=== PATIENT | male | born 1935 | race Caucasian/White ===

== ENCOUNTER 2019-03-15 21:47 | Observation (INO) ==
[~2019-03-15 21:47] MED LIST: SODIUM CHLORIDE 0.9% 1000ML 1,000 ML IV SCH
[2019-03-15 22:02] LABS: Basophils # (auto) 0.01 K/uL (0-0.2); Basophils % (auto) 0.2 %; Eosinophils # (auto) 0.07 K/uL (0-0.5); Eosinophils % (auto) 1.6 %; Hematocrit (blood only) 38.5 % (42-52); Hemoglobin 12.9 g/dL (14.0-18.0); Immature Granulocytes # (auto) 0.02 K/uL (0.00-0.02); Immature Granulocytes % (auto) 0.5 %; Lymphocytes # (auto) 0.89 K/uL (1.2-3.4); Lymphocytes % (auto) 20.8 %; Mean Corpuscular Hemoglobin 31.2 pg (25-34); Mean Corpuscular Hgb Conc 33.5 g/dL (32-36); Mean Corpuscular Volume 93.2 fL (80-100); Mean Platelet Volume 9.7 fL (7.4-10.4); Monocytes # (auto) 0.36 K/uL (0.11-0.59); Monocytes % (auto) 8.4 %; Neutrophils # (auto) 2.92 K/uL (1.4-6.5); Neutrophils % (auto) 68.5 %; Platelet Count 204 K/uL (130-400); RDW Coefficient of Variation 13.5 % (11.5-14.5); RDW Standard Deviation 45.9 fL (36.4-46.3); Red Blood Count 4.13 M/uL (4.7-6.1); White Blood Count 4.27 K/uL (4.8-10.8)
--- NOTE | 2019-03-15 22:05 | CT Scan Report ---
CT head/brain wo con CLINICAL HISTORY: 83 years-old Male presenting with Stroke evaluation. TECHNIQUE: Multidetector CT imaging of the head was performed without the use of intravenous contrast . IV contrast: None. One or more dose lowering techniques were used consistent with the principles of ALARA (as low as reasonably achievable), including automatic exposure control, mA or kV adjustment t o individual patient size, and/or use of iterative reconstruction. COMPARISON: 02/18/2018. CT DOSE (mGy.cm): The estimated cumulative dose is 1035.39. 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 Proportional ventricular and sulcal prominence, likely age-related parenchymal volume loss. No hemorr caden. Periventricular and subcortical white matter hypoattenuation, nonspecific but likely indicative of chronic small vessel ischemic change. No acute territorial infarct. No mass effect or midline kirsten ft. No extra-axial fluid collection. Paranasal sinuses and mastoid air cells clear. Calvarium intact. IMPRESSION: 1. Chronic small vessel ischemic change. No acute intracranial abnormality. These findings were discussed with nurse Berman by Dr. Tam on 03/15/2019 10:03 PM. Electronically signed by: Pio Tam M.D. 03/15/2019 10:04 PM
--- NOTE | 2019-03-15 22:11 | CT Scan Report ---
CT angio head w con CLINICAL HISTORY: 83 years-old Male presenting with difficulty speaking, cva. TECHNIQUE: Multidetector CT angiography of the head was performed after the administration of intrave nous contrast. 3-D volumetric and/or maximum intensity projection (MIP) images were subsequently tash nstructed for review. IV contrast: 116 mL of Optiray 320. One or more dose lowering techniques were u sed consistent with the principles of ALARA (as low as reasonably achievable), including automatic ex posure control, mA or kV adjustment to individual patient size, and/or use of iterative reconstructio n. COMPARISON: None. CT DOSE (mGy.cm): The estimated cumulative dose is 1035.39. 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 Anterior circulation: Atherosclerosis of the cavernous segments of the internal carotid arteries. Int racranial portions of the internal carotid arteries patent to the level of the termini. Anterior cere bral arteries patent. Middle cerebral arteries patent. Anterior communicating artery patent. Posterior circulation: Codominant vertebral arteries. Intradural portions of the vertebral arteries p atent. Posterior inferior cerebellar arteries patent. Basilar artery patent. Anterior inferior cerebe llar arteries poorly visualized. Superior cerebellar arteries patent. Posterior cerebral arteries pat ent. Posterior communicating arteries patent. Dural venous sinuses: Patent. Other: Allowing for the phase of contrast, brain parenchyma with age-related parenchymal volume loss. Calvarium intact. IMPRESSION: 1. No evidence of aneurysm, focal vessel occlusion, or significant stenosis of the intracranial charlie wesley. Electronically signed by: Pio Tam M.D. 03/15/2019 10:10 PM
--- NOTE | 2019-03-15 22:15 | CT Scan Report ---
CT angio neck with con CLINICAL HISTORY: 83 years-old Male presenting with difficulty speaking, cva. TECHNIQUE: Multidetector CT angiography of the neck was performed after the administration of intrave nous contrast. 3-D volumetric and/or maximum intensity projection (MIP) images were subsequently tash nstructed for review. IV contrast: 116 mL of Optiray 320. One or more dose lowering techniques were u sed consistent with the principles of ALARA (as low as reasonably achievable), including automatic ex posure control, mA or kV adjustment to individual patient size, and/or use of iterative reconstructio n. Stenosis measurements were based on NASCET-like criteria (distal lumen diameter as the denominator for stenosis measurement). COMPARISON: None. CT DOSE (mGy.cm): The estimated cumulative dose is 1035.39 mGy.cm. FINDINGS: Workers Compensation Attorney topogram: Unremarkable. Aortic arch: Origins of the branch vessels are not included within the [id number] apart from the l eft subclavian artery origin. Trace atherosclerosis of the aorta. Innominate artery: Patent. Right subclavian artery: Patent. Right common carotid artery: Patent. Right internal and external carotid arteries: Right carotid bifurcation patent. Right internal and ex ternal carotid arteries widely patent. Left common carotid artery: Patent. Left internal and external carotid arteries: Left carotid bifurcation patent. Left internal and exter nal carotid arteries widely patent. Left subclavian artery: Patent. Vertebral arteries: Left dominant vertebral artery. Origins and courses of the bilateral vertebral ar teries patent. Other: Limited intracranial evaluation within normal limits. Soft tissues of the neck normal allowing for the phase of contrast. Degenerative changes of the cervical spine. Lung apices clear. IMPRESSION: 1. No evidence of dissection, focal vessel occlusion, or significant stenosis of the cervical arteri es. Electronically signed by: Pio Tam M.D. 03/15/2019 10:14 PM
[2019-03-15 22:19] LABS: Alanine Aminotransferase 9 U/L (12-78); Albumin Level 2.9 gm/dl (3.4-5.0); Aspartate Aminotransferase 23 U/L (15-37); BUN Creatinine Ratio 18.1 (10-20); Blood Urea Nitrogen 20 mg/dl (7-18); Calcium 9.1 mg/dl (8.5-10.1); Carbon Dioxide 29 mmol/L (21-32); Chloride 106 mmol/L (98-107); Creatinine Clr Calc Pharmacy 41.9 ml/min; Est GFR (African American) 71.3; Est GFR (Non-African American) 61.5; Glucose 121 mg/dl (70-99); Magnesium 1.9 mg/dl (1.8-2.4); Potassium 3.9 mmol/L (3.5-5.1); Sodium 140 mmol/L (136-145)
[2019-03-15 22:21] LABS: INR 1.2 (0.9-1.1); Partial Thromboplastin Time 27.4 Seconds (21.0-31.0); Prothrombin Time 12.4 Seconds (9.0-12.0)
[2019-03-15 22:24] LABS: Albumin Globulin Ratio 0.7 (0.9-2); Alkaline Phosphatase 201 U/L (45-117); Bilirubin,Total 0.5 mg/dl (0.2-1); Total Protein 6.9 gm/dl (6.4-8.2); Troponin I < 0.015 ng/ml (0-0.045)
[2019-03-15 22:26] LABS: iSTAT Creatinine 1.1 mg/dl (0.6-1.3); iSTAT Hemoglobin 10.5 g/dl (14.0-18.0); iSTAT Ionized Calcium 1.13 mmol/l (1.12-1.32); iSTAT Potassium 4.3 mEq/L (3.3-5.0)
--- NOTE | 2019-03-15 22:37 | XRay Report ---
XR chest 1V portable CLINICAL HISTORY: 83 years-old Male presenting with CVA. TECHNIQUE: Portable upright AP view of the chest was obtained. COMPARISON: 02/18/2018. FINDINGS: Atherosclerosis of the aortic arch. Cardiac silhouette normal in size. Lungs are hyperinflated. No fo heber opacity. No pleural effusion or pneumothorax. Degenerative changes of the thoracic spine. Upper a bdomen normal. IMPRESSION: 1. Findings suggest emphysema. No focal infiltrate to suggest pneumonia. Electronically signed by: Pio Tam M.D. 03/15/2019 10:36 PM
--- NOTE | 2019-03-15 22:50 | Emergency Department Note ---
Entered by Giulia Thurston acting as a scribe for History of Present Illness General Chief complaint: Stroke Alert Stated complaint: AMS Source: patient and family (daughter) History of Present Illness Onset (ago): hour(s) 6 Location: head (stroke like symptoms) Pain Consistency: + constant Relieved By: + none Associated symptoms: + denies other symptoms (numbness and pain), + weakness and + other (trouble speaking, slumping in chair) The patient is a 83 year old M who presents to the Emergency Room with complaints of constant stroke like symptoms that started 6 hours ago. The majority of the HPI was provided by the patients daughter. She states that the patient is currently cared for by personal home care. She notes that she went see the patient today at 3:30pm. She states that when she saw the patient, the patient was weak and was slumping in his chair to the left side. She adds that at that time she attributed the patients symptoms to his history of Parkinsons Disease. She notes that the personal care nurse called EMS after she left because the nurse thought the patient was getting worse. The patient states that he has trouble speaking. The patient denies that he is currently experiencing numbness and pain. The patients family states that the patient has a history of kidney stones. They deny that the patient has a history of diabetes, a prior stroke, heart issues, and smoking. They also deny that the patient is currently on blood thinners. A review of the patients records show that the patient was seen by Dr. Lezama, neurology, on the th of this month due to a significant decline from baseline. Home Medications Home Medications Medication Instructions Recorded Confirmed Type albuterol sulfate [Ventolin HFA] 2 puff INHALATION Q4 PRN 03/15/19 03/15/19 History amantadine HCl 100 mg PO BID 03/15/19 03/15/19 History calcium carbonate-vitamin D3 1 tab PO BID 03/15/19 03/15/19 History [Calcium 500 + D] carbidopa-levodopa 2 tab PO TID 03/15/19 03/15/19 History cholecalciferol (vitamin D3) 2,000 unit PO DAILY 03/15/19 03/15/19 History [Vitamin D3] docusate sodium 100 mg PO BID 03/15/19 03/15/19 History hyoscyamine sulfate 0.125 mg PO Q6 PRN 03/15/19 03/15/19 History memantine [Namenda] 10 mg PO BID 03/15/19 03/15/19 History montelukast [Singulair] 10 mg PO DAILY 03/15/19 03/15/19 History nitrofurantoin monohyd/m-cryst 100 mg PO DAILY 03/15/19 03/15/19 History [Macrobid] phenazopyridine 100 mg PO TID PRN 03/15/19 03/15/19 History polyethylene glycol 3350 17 g PO DAILY 03/15/19 03/15/19 History [Natura-LAX] potassium chloride [K-Tab] 20 meq PO DAILY 03/15/19 03/15/19 History quetiapine [Seroquel] 75 mg PO HS 03/15/19 03/15/19 History ropinirole 0.5 mg PO BID 03/15/19 03/15/19 History senna 17.2 mg PO HS PRN 03/15/19 03/15/19 History sennosides-docusate sodium 2 tab-cap PO DAILY PRN 03/15/19 03/15/19 History [Senna-S] simvastatin [Zocor] 20 mg PO HS 03/15/19 03/15/19 History Allergies Allergy/AdvReac Type Severity Reaction Status Date / Time erythromycin base Allergy Unknown DOESN'T Verified 03/15/19 22:51 REMEMBER WHAT REACTION oxycodone Allergy Unknown TOLERATES Verified 03/15/19 22:51 VICODIN tetracycline Allergy Unknown RASH Verified 03/15/19 22:51 Past Med/Surg History Medical History Allergic rhinitis Constipation Dementia with Lewy bodies Dyslipidemia Essential hypertension History of malignant neoplasm of prostate Parkinsons disease Restless legs syndrome Surgical History Hx of lithotripsy S/P ureteral stent placement Family History Mother Breast cancer Social History Preferred Language: Japanese Communication Ability: Effective Visual Impairment: Limited Hearing Ability: Hard of Hearing Beliefs That Will Affect Care: None marital status: / Current Living Situation: Personal Care Facility Current Living Situation Comment: [facility] Feels Safe at Home: Yes Smoking Status: Never smoker Hx Alcohol Use: No Hx Substance Use: No Childhood Exposure to Second-Hand Smoke: No caffeine: Yes (Coffee one per day. ) during the past year weight has: decreased > 10 lbs Dental Care, Regularly: No Physical Activity Frequency: Does not Exercise Seatbelt Use: always Sunscreen Use: Yes Review of Systems See HPI for pertinent positives & negatives. and A total of 10 systems reviewed and were otherwise negative Physical Exam Vital Signs Vital Signs - 24 hr 03/15/19 22:09 03/15/19 22:15 03/15/19 22:30 Temperature 36.5 C Temperature Source Oral Pulse Rate 70 70 68 Pulse Rate from SpO2 Sensor 70 67 Respiratory Rate 18 20 24 Respiratory Depth Normal Blood Pressure 125/70 125/70 138/76 Blood Pressure Mean 88 75 84 Pulse Oximetry 96 96 99 Oxygen Delivery Method Room Air Room Air Room Air Sepsis Recent Fever Within 48 Hours No Sepsis New/Unexplained Change in Mental Status No Sepsis Action Taken by Nursing No Action Required 03/15/19 22:45 03/15/19 22:51 03/15/19 23:00 Temperature Temperature Source Pulse Rate 66 67 65 Pulse Rate from SpO2 Sensor 66 67 65 Respiratory Rate 22 27 H 18 Respiratory Depth Blood Pressure 138/75 133/74 137/77 Blood Pressure Mean 83 86 82 Pulse Oximetry 99 100 100 Oxygen Delivery Method Room Air Room Air Room Air Sepsis Recent Fever Within 48 Hours Sepsis New/Unexplained Change in Mental Status Sepsis Action Taken by Nursing 03/15/19 23:30 Temperature Temperature Source Pulse Rate 65 Pulse Rate from SpO2 Sensor 65 Respiratory Rate 25 H Respiratory Depth Blood Pressure 140/79 Blood Pressure Mean 88 Pulse Oximetry 100 Oxygen Delivery Method Room Air Sepsis Recent Fever Within 48 Hours Sepsis New/Unexplained Change in Mental Status Sepsis Action Taken by Nursing GENERAL: Patient is awake but listless appearing. He does not appear to be in pain. EYES: The conjunctivae are clear. The pupils are round and reactive. EARS, NOSE, MOUTH AND THROAT: The nose is without any evidence of any deformity. Mucous membranes are moist. NECK: The neck is nontender and supple. RESPIRATORY: Shallow respirations were noted. There is no tachypnea or conversational dyspnea. CARDIOVASCULAR: Regular rate and rhythm noted there no murmurs rubs or gallops normal S1 normal S2 GASTROINTESTINAL: The abdomen is soft. Abdomen is nontender MUSCULOSKELETAL/EXTREMITIES: There is no evidence of gross deformity full range of motion is noted in the hips and shoulders SKIN: There is no obvious evidence of any rash. Pedal edema was noted bilateral ly. NEUROLOGIC: Patient is oriented to person place and situation. He recognizes his daughter. Kennel Keeper strength is diminished in the left hand compared to the right. Patient is able to hold each leg off the bed for greater than 5 seconds. Course Course 2146: The patient was evaluated in room B1. A complete history and physical exam was performed. 2207: I reviewed the patient's case with Juan Robertshey Telestroke. 2257: I reviewed the patient's case with Dr. Denny Solares, [facility] Hospitalist. He will evaluate the patient for further management. Administered Medications Sodium Chloride (Nss 1000ml) 1,000 mls @ 50 mls/hr IV .Q20H ANGY Stop: 04/14/19 21:44 Last Admin: 03/15/19 22:22 Dose: 50 mls/hr Documented by: [id number] Medical Decision Making Differential Diagnosis Differential includes acute coronary syndrome, myocardial infarction, CVA, TIA, anemia, infection, pneumonia, UTI, pyelonephritis, poor nutrition, dehydration, electrolyte disturbance,hypoglycemia. Medical Records Attestation: I reviewed the patient's medical records. Home Medications Current Medication List: was personally reviewed by me Laboratory Data Attestation: I reviewed the patient's lab results. Result diagrams: 03/15/19 21:14 03/15/19 21:14 Lab Results 03/15/19 03/15/19 03/15/19 Range/Units 21:14 21:14 21:14 WBC 4.27 L (4.8-10.8) K/uL RBC 4.13 L (4.7-6.1) M/uL Hgb 12.9 L (14.0-18.0) g/dL POC Hgb (14.0-18.0) g/dl Hct 38.5 L (42-52) % POC Hct (42-52) % MCV 93.2 (80-100) fL MCH 31.2 (25-34) pg MCHC 33.5 (32-36) g/dL RDW Std Deviation 45.9 (36.4-46.3) fL RDW Coeff of Mike 13.5 (11.5-14.5) % Plt Count 204 (130-400) K/uL MPV 9.7 (7.4-10.4) fL Immature Gran % (Auto) 0.5 % Neut % (Auto) 68.5 % Lymph % (Auto) 20.8 % Hart % (Auto) 8.4 % Eos % (Auto) 1.6 % Baso % (Auto) 0.2 % Immature Gran # (Auto) 0.02 (0.00-0.02) K/uL Neut # (Auto) 2.92 (1.4-6.5) K/uL Lymph # (Auto) 0.89 L (1.2-3.4) K/uL Hart # (Auto) 0.36 (0.11-0.59) K/uL Eos # (Auto) 0.07 (0-0.5) K/uL Baso # (Auto) 0.01 (0-0.2) K/uL PT 12.4 H (9.0-12.0) Seconds INR 1.2 H (0.9-1.1) APTT 27.4 (21.0-31.0) Seconds PTT Ratio 1.0 POC Sodium (135-144) mEq/L Sodium 140 (136-145) mmol/L POC Potassium (3.3-5.0) mEq/L Potassium 3.9 (3.5-5.1) mmol/L POC Chloride (101-112) mEq/L Chloride 106 (98-107) mmol/L Carbon Dioxide 29 (21-32) mmol/L POC Total CO2 (24-31) mEq/l Anion Gap 6.0 (3-11) POC Anion Gap (16-25) mmol/L POC BUN (7-18) mg/dl BUN 20 H (7-18) mg/dl Creatinine 1.11 (0.6-1.4) mg/dl POC Creatinine (0.6-1.3) mg/dl Est Cr Clr Drug Dosing 41.9 ml/min Est GFR ( Amer) 71.3 Est GFR (Non-Af Amer) 61.5 BUN/Creatinine Ratio 18.1 (10-20) Glucose 121 H (70-99) mg/dl POC Glucose (70-99) POC Glucose (other) (70-99) mg/dl Calcium 9.1 (8.5-10.1) mg/dl POC Ioniz Calcium Marlon (1.12-1.32) mmol/l Magnesium 1.9 (1.8-2.4) mg/dl Total Bilirubin 0.5 (0.2-1) mg/dl AST 23 (15-37) U/L ALT 9 L (12-78) U/L Alkaline Phosphatase 201 H (45-117) U/L Troponin I < 0.015 (0-0.045) ng/ml Total Protein 6.9 (6.4-8.2) gm/dl Albumin 2.9 L (3.4-5.0) gm/dl Globulin 4.0 (2.5-4.0) gm/dl Albumin/Globulin Ratio 0.7 L (0.9-2) Blood Type Antibody Screen 03/15/19 03/15/19 03/15/19 Range/Units 22:08 22:10 22:10 WBC (4.8-10.8) K/uL RBC (4.7-6.1) M/uL Hgb (14.0-18.0) g/dL POC Hgb 10.5 L (14.0-18.0) g/dl Hct (42-52) % POC Hct 31 L (42-52) % MCV (80-100) fL MCH (25-34) pg MCHC (32-36) g/dL RDW Std Deviation (36.4-46.3) fL RDW Coeff of Mike (11.5-14.5) % Plt Count (130-400) K/uL MPV (7.4-10.4) fL Immature Gran % (Auto) % Neut % (Auto) % Lymph % (Auto) % Hart % (Auto) % Eos % (Auto) % Baso % (Auto) % Immature Gran # (Auto) (0.00-0.02) K/uL Neut # (Auto) (1.4-6.5) K/uL Lymph # (Auto) (1.2-3.4) K/uL Hart # (Auto) (0.11-0.59) K/uL Eos # (Auto) (0-0.5) K/uL Baso # (Auto) (0-0.2) K/uL PT (9.0-12.0) Seconds INR (0.9-1.1) APTT (21.0-31.0) Seconds PTT Ratio POC Sodium 139 (135-144) mEq/L Sodium (136-145) mmol/L POC Potassium 4.3 (3.3-5.0) mEq/L Potassium (3.5-5.1) mmol/L POC Chloride 101 (101-112) mEq/L Chloride (98-107) mmol/L Carbon Dioxide (21-32) mmol/L POC Total CO2 28 (24-31) mEq/l Anion Gap (3-11) POC Anion Gap 14.0 L (16-25) mmol/L POC BUN 19 H (7-18) mg/dl BUN (7-18) mg/dl Creatinine (0.6-1.4) mg/dl POC Creatinine 1.1 (0.6-1.3) mg/dl Est Cr Clr Drug Dosing ml/min Est GFR ( Amer) Est GFR (Non-Af Amer) BUN/Creatinine Ratio (10-20) Glucose (70-99) mg/dl POC Glucose 112 H (70-99) POC Glucose (other) 119 H (70-99) mg/dl Calcium (8.5-10.1) mg/dl POC Ioniz Calcium Marlon 1.13 (1.12-1.32) mmol/l Magnesium (1.8-2.4) mg/dl Total Bilirubin (0.2-1) mg/dl AST (15-37) U/L ALT (12-78) U/L Alkaline Phosphatase (45-117) U/L Troponin I (0-0.045) ng/ml Total Protein (6.4-8.2) gm/dl Albumin (3.4-5.0) gm/dl Globulin (2.5-4.0) gm/dl Albumin/Globulin Ratio (0.9-2) Blood Type A Positive Antibody Screen NEGATIVE Imaging Data Radiologist's Impression: Radiology results as stated below per my review and the radiologist's interpretation: XR chest 1V portable CLINICAL HISTORY: 83 years-old Male presenting with CVA. TECHNIQUE: Portable upright AP view of the chest was obtained. COMPARISON: 02/18/2018. FINDINGS: Atherosclerosis of the aortic arch. Cardiac silhouette normal in size. Lungs are hyperinflated. No focal opacity. No pleural effusion or pneumothorax. Degenerative changes of the thoracic spine. Upper abdomen normal. IMPRESSION: 1. Findings suggest emphysema. No focal infiltrate to suggest pneumonia. Electronically signed by: Pio Tam M.D. 03/15/2019 10:[address] head/brain wo con CLINICAL HISTORY: 83 years-old Male presenting with Stroke evaluation. TECHNIQUE: Multidetector CT imaging of the head was performed without the use of intravenous contrast. IV contrast: None. One or more dose lowering techniques were used consistent with the principles of ALARA (as low as reasonably achievable), including automatic exposure control, mA or kV adjustment to individual patient size, and/or use of iterative reconstruction. COMPARISON: 02/18/2018. CT DOSE (mGy.cm): The estimated cumulative dose is 1035.39. FINDINGS: Storage Garage Attendant topogram: The patient is edentulous. Proportional ventricular and sulcal prominence, likely age-related parenchymal volume loss. No hemorrhage. Periventricular and subcortical white matter hypoattenuation, nonspecific but likely indicative of chronic small vessel ischemic change. No acute territorial infarct. No mass effect or midline shift. No extra-axial fluid collection. Paranasal sinuses and mastoid air cells clear. Calvarium intact. IMPRESSION: 1. Chronic small vessel ischemic change. No acute intracranial abnormality. These findings were discussed with nurse Berman by Dr. Tam on 03/15/2019 10:03 PM. Electronically signed by: Pio Tam M.D. 03/15/2019 10:[address] angio head w con CLINICAL HISTORY: 83 years-old Male presenting with difficulty speaking, cva. TECHNIQUE: Multidetector CT angiography of the head was performed after the administration of intravenous contrast. 3-D volumetric and/or maximum intensity projection (MIP) images were subsequently reconstructed for review. IV contrast: 116 mL of Optiray 320. One or more dose lowering techniques were used consistent with the principles of ALARA (as low as reasonably achievable), incl uding automatic exposure control, mA or kV adjustment to individual patient size, and/or use of iterative reconstruction. COMPARISON: None. CT DOSE (mGy.cm): The estimated cumulative dose is 1035.39. FINDINGS: Storage Garage Attendant topogram: The patient is edentulous. Anterior circulation: Atherosclerosis of the cavernous segments of the internal carotid arteries. Intracranial portions of the internal carotid arteries patent to the level of the termini. Anterior cerebral arteries patent. Middle cerebral arteries patent. Anterior communicating artery patent. Posterior circulation: Codominant vertebral arteries. Intradural portions of the vertebral arteries patent. Posterior inferior cerebellar arteries patent. Basilar artery patent. Anterior inferior cerebellar arteries poorly visualized. Superior cerebellar arteries patent. Posterior cerebral arteries patent. Posterior communicating arteries patent. Dural venous sinuses: Patent. Other: Allowing for the phase of contrast, brain parenchyma with age-related parenchymal volume loss. Calvarium intact. IMPRESSION: 1. No evidence of aneurysm, focal vessel occlusion, or significant stenosis of the intracranial arteries. Electronically signed by: Pio Tam M.D. 03/15/2019 10:[address] angio neck with con CLINICAL HISTORY: 83 years-old Male presenting with difficulty speaking, cva. TECHNIQUE: Multidetector CT angiography of the neck was performed after the administration of intravenous contrast. 3-D volumetric and/or maximum intensity projection (MIP) images were subsequently reconstructed for review. IV contrast: 116 mL of Optiray 320. One or more dose lowering techniques were used co nsistent with the principles of ALARA (as low as reasonably achievable), including automatic exposure control, mA or kV adjustment to individual patient size, and/or use of iterative reconstruction. Stenosis measurements were based on NASCET-like criteria (distal lumen diameter as the denominator for stenosis measurement). COMPARISON: None. CT DOSE (mGy.cm): The estimated cumulative dose is 1035.39 mGy.cm. FINDINGS: Storage Garage Attendant topogram: Unremarkable. Aortic arch: Origins of the branch vessels are not included within the [id number] apart from the left subclavian artery origin. Trace atherosc lerosis of the aorta. Innominate artery: Patent. Right subclavian artery: Patent. Right common carotid artery: Patent. Right internal and external carotid arteries: Right carotid bifurcation patent. Right internal and external carotid arteries widely patent. Left common carotid artery: Patent. Left internal and external carotid arteries: Left carotid bifurcation patent. Left internal and external carotid arteries widely patent. Left subclavian artery: Patent. Vertebral arteries: Left dominant vertebral artery. Origins and courses of the bilateral vertebral arteries patent. Other: Limited intracranial evaluation within normal limits. Soft tissues of the neck normal allowing for the phase of contrast. Degenerative changes of the cervical spine. Lung apices clear. IMPRESSION: 1. No evidence of dissection, focal vessel occlusion, or significant stenosis of the cervical arteries. Electronically signed by: Pio Tam M.D. 03/15/2019 10:14 PM ECG Data Attestation: I personally reviewed and interpreted this ECG as follows: Indication: + weakness Rate (beats per minute): 70 Rhythm: + normal sinus ECG Intervals/blocks: + Left bundle branch block ECG Findings: no PACs and no PVCs Comparison ECG Date: from (02/18/18) Change: no significant change Blood Pressure Blood Pressure Findings: Elevated blood pressure Blood Pressure Disposition: further management by hospitalist JAVIER Villarreal The patient is an 83-year-old male who presented to the emergency department for an evaluation of possible stroke. Further history is obtained from the prehospital personnel as well as the patient's family members. The patient was made a stroke alert prior to arrival because he appeared to have left-sided weakness. I was able to review some of the patient's outpatient neurology notes prior to arrival and it appears the patient has very advanced Parkinson's. The patient was not found to have any acute disease on plain CT. I discussed this case initially with the [facility] stroke neurologist. They did not recommend any TPA at this time given the patient's age and advanced disease but did recommend that I call them back if the condition changed or if the patient's family members gave different history. Upon arrival the patient's family members did admit that the patient has been having symptoms since approximately 1530 this afternoon. I do not feel the patient is a good candidate for TPA and he does not appear to have signs of large vessel occlusion either on physical exam or on radiographic studies. The patient does appear to have significant difficulty swallowing. I discussed the patient's laboratory and radiographic studies with him and his family members. He was treated with a fluid bolus. I also discussed his case with the on-call [facility] hospitalist group. They have agreed to evaluate the patient in the emergency department for further management disposition. Impression & Plan Weakness Discharge Plan Visit Data *Final* Discharge Date/Time: 03/16/19 00:18 Chief Complaint: Stroke Alert Stated Complaint: AMS ED Provider: Tavares Diaz Discharge Problem: Weakness Patient Disposition: Admitted As Inpatient Discharge Instructions Interventions: ED Discharge Assessment Last Done: 03/16/19 00:18 The scribe's documentation has been prepared under my direction and personally reviewed by me in its entirety. I confirm that the note above accurately reflects all work, treatment, procedures, and medical decision making performed by me.
--- NOTE | 2019-03-16 | History & Physical Report ---
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 Concern for stroke versus baseline deconditioning Strokelike symptoms: Leaning more to the left and possible speech changes Vitals within normal limits Normal neurologic exam compared to baseline CT head: Chronic small vessel ischemic change, no acute intracranial abnormality CTA head: No aneurysm focal vessel occlusion or stenosis of intracranial arteries CTA neck: No dissection focal vessel occlusion significant stenosis of cervical artery MRI brain ordered Lipid profile and hemoglobin A1c ordered Echo ordered On stroke protocol, monitor on telemetry Started on aspirin 81 mg daily Continue home simvastatin Neurology consulted Hyperlipidemia Continue home simvastatin Parkinson's disease Continue amantadine, carbidopa levodopa Continue hyoscyamine for excessive salivation Dementia Continue home memantine RLS Continue ropinirole Emphysema Continue home albuterol inhaler, montelukast Chronic constipation Continue home docusa, MiraLAX, senna as needed History of recurrent UTIs Continue Macrobid prophylaxis, phenazopyridine FEN/GI: LR at 80 cc/h x 1 L for mild elevation in BUN/creatinine DVT prophylaxis: SCDs only, low risk Code: DNR/DNI [facility] History of Present Illness Chief Complaint: Family brought patient for concern of color being off, leaning to the left and patient's report of speech being off Primary Care Provider: Melina Ag, 83-year-old male with history of 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 Patient reports difficulty speaking however daughter and niece believe his speech is at baseline, slowed and difficult to understand. Per neurology note his speech is also noted to be slow consistent with his Parkinson's. Daughter reports visiting father around 3 PM and he appeared off to herleaning more towards one side, left side color was off he looked more pale. Niece visited an hour later and thought he looked good. Then later [facility] called that he was leaning more towards the left and acting differently as they were preparing him for bedtime so he was brought to the ED. According to niece he ate his lunch and supper today and did well. Patient reports weakness in legs for a long time. No new weakness in limbs. Patient denies any fever, chills, headache, lightheadedness, neck pain, back pain, abdominal pain, chest pain, shortness of breath, nausea, vomiting, diarrhea, constipation, hematochezia, dysuria, hematuria. Per Dr. Lezama's note from 03/01/2019: Patient deconditioning, declining overall function per personal group home. No longer able to walk, requires transport in and out of wheelchair, poor balance and unable to work with PT. Excess salivation for which she was started on hyosyamine. He is reported to be choking as well and requiring thickened liquids and moist and food. Allergies Allergy/AdvReac Type Severity Reaction Status Date / Time erythromycin base Allergy Unknown DOESN'T Verified 03/15/19 22:51 REMEMBER WHAT REACTION oxycodone Allergy Unknown TOLERATES Verified 03/15/19 22:51 VICODIN tetracycline Allergy Unknown RASH Verified 03/15/19 22:51 Home Medications Home Medications Medication Instructions Recorded Confirmed Type albuterol sulfate [Ventolin HFA] 2 puff INHALATION Q4 PRN 03/15/19 03/15/19 History calcium carbonate-vitamin D3 1 tab PO BID 03/15/19 03/15/19 History [Calcium 500 + D] carbidopa-levodopa 2 tab PO TID 03/15/19 03/15/19 History cholecalciferol (vitamin D3) 2,000 unit PO DAILY 03/15/19 03/15/19 History [Vitamin D3] docusate sodium 100 mg PO BID 03/15/19 03/15/19 History hyoscyamine sulfate 0.125 mg PO Q6 PRN 03/15/19 03/15/19 History memantine [Namenda] 10 mg PO BID 03/15/19 03/15/19 History montelukast [Singulair] 10 mg PO DAILY 03/15/19 03/15/19 History nitrofurantoin monohyd/m-cryst 100 mg PO DAILY 03/15/19 03/15/19 History [Macrobid] phenazopyridine 100 mg PO TID PRN 03/15/19 03/15/19 History polyethylene glycol 3350 17 g PO DAILY 03/15/19 03/15/19 History [Natura-LAX] potassium chloride [K-Tab] 20 meq PO DAILY 03/15/19 03/15/19 History quetiapine [Seroquel] 75 mg PO HS 03/15/19 03/15/19 History ropinirole 0.5 mg PO BID 03/15/19 03/15/19 History senna 17.2 mg PO HS PRN 03/15/19 03/15/19 History sennosides-docusate sodium 2 tab-cap PO DAILY PRN 03/15/19 03/15/19 History [Senna-S] simvastatin [Zocor] 20 mg PO HS 03/15/19 03/15/19 History cephalexin 500 mg PO BID #14 cap 03/16/19 Rx thiamine HCl (vitamin B1) [Vitamin 100 mg PO QAM #30 tab 03/16/19 Rx B-1] Past Med/Surg History Medical History (Updated 03/16/19 @ 13:44 by Juju Phillips MD) Allergic rhinitis Constipation Dementia with Lewy bodies Dyslipidemia Dysphagia Essential hypertension History of malignant neoplasm of prostate Parkinsons disease Restless legs syndrome Sialorrhea Surgical History Hx of lithotripsy S/P ureteral stent placement Family History Mother Breast cancer Social History Preferred Language: Azeri Communication Ability: Impaired Visual Impairment: Limited Hearing Ability: Hard of Hearing Dietist Required: No Beliefs That Will Affect Care: None marital status: / Current Living Situation: [facility] Current Living Situation Comment: Day Feels Safe at Home: Yes Smoking Status: Unknown if ever smoked Hx Alcohol Use: No Hx Substance Use: No Childhood Exposure to Second-Hand Smoke: No caffeine: Yes (Coffee one per day. ) during the past year weight has: decreased > 10 lbs Dental Care, Regularly: No Physical Activity Frequency: Does not Exercise Seatbelt Use: always Sunscreen Use: Yes Review of Systems Review of Systems: As per HPI Physical Exam Physical Exam: General: In NAD Neuro: A&O x 4, CN 2-12 intact, slowed speech, sensation intact over bilateral upper and lower extremities, strength 5/5 bilateral upper and lower extremities, no pronator drift Pulm: CTAB equal breath sounds bilaterally CV: RRR, no m/r/g, cap refill 3 secs Abdomen:+BS, no TTP in all quadrants, non-distended LE: no LE edema, no calf TTP MSK: no C-spine TTP Results & Data Vital Signs (Past 12 Hours) Vital Signs Temp Pulse Resp BP Pulse Ox 03/15/19 22:45 66 22 138/75 99 03/15/19 22:30 68 24 138/76 99 03/15/19 22:15 70 20 125/70 96 03/15/19 22:09 36.5 C 70 18 125/70 96 Laboratory Results Abnormal lab results 03/15/19 03/15/19 03/15/19 Range/Units 21:14 21:14 21:14 WBC 4.27 L (4.8-10.8) K/uL RBC 4.13 L (4.7-6.1) M/uL Hgb 12.9 L (14.0-18.0) g/dL POC Hgb (14.0-18.0) g/dl Hct 38.5 L (42-52) % POC Hct (42-52) % Lymph # (Auto) 0.89 L (1.2-3.4) K/uL PT 12.4 H (9.0-12.0) Seconds INR 1.2 H (0.9-1.1) POC Anion Gap (16-25) mmol/L POC BUN (7-18) mg/dl BUN 20 H (7-18) mg/dl Glucose 121 H (70-99) mg/dl POC Glucose (70-99) POC Glucose (other) (70-99) mg/dl ALT 9 L (12-78) U/L Alkaline Phosphatase 201 H (45-117) U/L Albumin 2.9 L (3.4-5.0) gm/dl Albumin/Globulin Ratio 0.7 L (0.9-2) 03/15/19 03/15/19 Range/Units 22:08 22:10 WBC (4.8-10.8) K/uL RBC (4.7-6.1) M/uL Hgb (14.0-18.0) g/dL POC Hgb 10.5 L (14.0-18.0) g/dl Hct (42-52) % POC Hct 31 L (42-52) % Lymph # (Auto) (1.2-3.4) K/uL PT (9.0-12.0) Seconds INR (0.9-1.1) POC Anion Gap 14.0 L (16-25) mmol/L POC BUN 19 H (7-18) mg/dl BUN (7-18) mg/dl Glucose (70-99) mg/dl POC Glucose 112 H (70-99) POC Glucose (other) 119 H (70-99) mg/dl ALT (12-78) U/L Alkaline Phosphatase (45-117) U/L Albumin (3.4-5.0) gm/dl Albumin/Globulin Ratio (0.9-2) Diagnostic Findings CT head/brain wo con CLINICAL HISTORY: 83 years-old Male presenting with Stroke evaluation. TECHNIQUE: Multidetector CT imaging of the head was performed without the use of intravenous contrast. IV contrast: None. One or more dose lowering techniques were used consistent with the principles of ALARA (as low as reasonably achievable), including automatic exposure control, mA or kV adjustment to individual patient size, and/or use of iterative reconstruction. COMPARISON: 02/18/2018. CT DOSE (mGy.cm): The estimated cumulative dose is 1035.39. FINDINGS: Customer Retention Specialist topogram: The patient is edentulous. Proportional ventricular and sulcal prominence, likely age-related parenchymal volume loss. No hemorrhage. Periventricular and subcortical white matter hypoattenuation, nonspecific but likely indicative of chronic small vessel ischemic change. No acute territorial infarct. No mass effect or midline shift. No extra-axial fluid collection. Paranasal sinuses and mastoid air cells clear. Calvarium intact. IMPRESSION: 1. Chronic small vessel ischemic change. No acute intracranial abnormality. CT angio head w con CLINICAL HISTORY: 83 years-old Male presenting with difficulty speaking, cva. TECHNIQUE: Multidetector CT angiography of the head was performed after the administration of intravenous contrast. 3-D volumetric and/or maximum intensity projection (MIP) images were subsequently reconstructed for review. IV contrast: 116 mL of Optiray 320. One or more dose lowering techniques were used consistent with the principles of ALARA (as low as reasonably achievable), including automatic exposure control, mA or kV adjustment to individual patient size, and/or use of iterative reconstruction. COMPARISON: None. CT DOSE (mGy.cm): The estimated cumulative dose is 1035.39. FINDINGS: Customer Retention Specialist topogram: The patient is edentulous. Anterior circulation: Atherosclerosis of the cavernous segments of the internal carotid arteries. Intracranial portions of the internal carotid arteries patent to the level of the termini. Anterior cerebral arteries patent. Middle cerebral arteries patent. Anterior communicating artery patent. Posterior circulation: Codominant vertebral arteries. Intradural portions of the vertebral arteries patent. Posterior inferior cerebellar arteries patent. Basilar artery patent. Anterior inferior cerebellar arteries poorly visualized. Superior cerebellar arteries patent. Posterior cerebral arteries patent. Posterior communicating arteries patent. Dural venous sinuses: Patent. Other: Allowing for the phase of contrast, brain parenchyma with age-related parenchymal volume loss. Calvarium intact. IMPRESSION: 1. No evidence of aneurysm, focal vessel occlusion, or significant stenosis of the intracranial arteries. CT angio neck with con CLINICAL HISTORY: 83 years-old Male presenting with difficulty speaking, cva. TECHNIQUE: Multidetector CT angiography of the neck was performed after the administration of intravenous contrast. 3-D volumetric and/or maximum intensity projection (MIP) images were subsequently reconstructed for review. IV contrast: 116 mL of Optiray 320. One or more dose lowering techniques were used consistent with the principles of ALARA (as low as reasonably achievable), including automatic exposure control, mA or kV adjustment to individual patient size, and/or use of iterative reconstruction. Stenosis measurements were based on NASCET-like criteria (distal lumen diameter as the denominator for stenosis measurement). COMPARISON: None. CT DOSE (mGy.cm): The estimated cumulative dose is 1035.39 mGy.cm. FINDINGS: Customer Retention Specialist topogram: Unremarkable. Aortic arch: Origins of the branch vessels are not included within the [id number]-pfay apart from the left subclavian artery origin. Trace atherosclerosis of the aorta. Innominate artery: Patent. Right subclavian artery: Patent. Right common carotid artery: Patent. Right internal and external carotid arteries: Right carotid bifurcation patent. Right internal and external carotid arteries widely patent. Left common carotid artery: Patent. Left internal and external carotid arteries: Left carotid bifurcation patent. Left internal and external carotid arteries widely patent. Left subclavian artery: Patent. Vertebral arteries: Left dominant vertebral artery. Origins and courses of the bilateral vertebral arteries patent. Other: Limited intracranial evaluation within normal limits. Soft tissues of the neck normal allowing for the phase of contrast. Degenerative changes of the cervical spine. Lung apices clear. IMPRESSION: 1. No evidence of dissection, focal vessel occlusion, or significant stenosis of the cervical arteries. XR chest 1V portable CLINICAL HISTORY: 83 years-old Male presenting with CVA. TECHNIQUE: Portable upright AP view of the chest was obtained. COMPARISON: 02/18/2018. FINDINGS: Atherosclerosis of the aortic arch. Cardiac silhouette normal in size. Lungs are hyperinflated. No focal opacity. No pleural effusion or pneumothorax. Degenerative changes of the thoracic spine. Upper abdomen normal. IMPRESSION: 1. Findings suggest emphysema. No focal infiltrate to suggest pneumonia. Code Status & VTE Plan Code Status DNR/DNI VTE Prophylaxis Plan VTE Prophylaxis will be ordered: Yes Supervising Physician Co-Signing Physician Notes Attending addendum: I have physically seen this patient, have supervised the medical residents activities, and agree with the H&P unless as otherwise noted. Assessment and Plan: Strokelike symptoms/atypical Parkinson's disease with associated dementia versus Lewy body dementia- The patient will be admitted to telemetry for serial cardiac enzymes, serial EKG's, cardiac rhythm monitoring and a 2-D echocardiogram with Dopplers. CT head chronic small vessel disease with no acute changes. CTA head no acute findings. CTA neck no acute findings. MRI brain without contrast pending. Check a fasting lipid panel and hemoglobin A1c. Admit on ischemic stroke without TPA protocol. Start aspirin 81 mg daily. Continue high-dose simvastatin. Consult neurology Parkinson's/dementia- Continue usual dosing of amantadine, carbidopa levodopa, hyoscyamine and memantine. Remainder of orders and notations as noted. Resident Activity Tracking Resident Involvement: Resident Care Provided Care Provided: [facility]
[2019-03-16] MEDS ORDERED: DOCUSATE SODIUM/SENNA 50/8.6MG TAB PO PRN (00:46)
[2019-03-16] MEDS ORDERED: ALBUTEROL HFA 8 GM INHALER INH PRN (00:46)
[2019-03-16] MEDS ORDERED: PHENAZOPYRIDINE HCL 100 MG TAB PO PRN (00:46)
[2019-03-16] MEDS ORDERED: ONDANSETRON INJ 2 MG/ML 2 ML VIAL IV PRN (00:46)
[2019-03-16] MEDS ORDERED: LACTATED RINGER'S 1,000 ML IV SCH (00:46)
[2019-03-16] MEDS ORDERED: ACETAMINOPHEN 325 MG TAB PO PRN (00:46)
[2019-03-16] MEDS ORDERED: PHARMACIST DISCHARGE MED REC CONSULT PRN (00:46)
[2019-03-16] MEDS ORDERED: HYOSCYAMINE SULFATE 0.125 MG TAB PO PRN (01:08)
[2019-03-16] MEDS ORDERED: SENNA 8.6 MG TAB PO PRN (01:10)
[2019-03-16] MEDS ORDERED: GADOBUTROL 30ML VIAL IV PRN (02:36)
[2019-03-16] MEDS: MEMANTINE HCL 10 MG TAB PO SCH ×2 (03:06→08:30)
[2019-03-16] MEDS: DOCUSATE SODIUM 100 MG CAP PO SCH ×2 (03:06→08:24)
[2019-03-16 06:00] LABS: Basophils # (auto) 0.02 K/uL (0-0.2); Basophils % (auto) 0.4 %; Eosinophils # (auto) 0.14 K/uL (0-0.5); Eosinophils % (auto) 2.6 %; Hematocrit (blood only) 38.6 % (42-52); Hemoglobin 12.8 g/dL (14.0-18.0); Immature Granulocytes # (auto) 0.01 K/uL (0.00-0.02); Immature Granulocytes % (auto) 0.2 %; Lymphocytes % (auto) 18.2 %; Mean Corpuscular Hemoglobin 31.3 pg (25-34); Mean Corpuscular Hgb Conc 33.2 g/dL (32-36); Mean Corpuscular Volume 94.4 fL (80-100); Mean Platelet Volume 9.3 fL (7.4-10.4); Monocytes # (auto) 0.46 K/uL (0.11-0.59); Monocytes % (auto) 8.4 %; Neutrophils # (auto) 3.86 K/uL (1.4-6.5); Neutrophils % (auto) 70.2 %; Platelet Count 212 K/uL (130-400); RDW Coefficient of Variation 13.3 % (11.5-14.5); RDW Standard Deviation 46.3 fL (36.4-46.3); Red Blood Count 4.09 M/uL (4.7-6.1); White Blood Count 5.49 K/uL (4.8-10.8)
[2019-03-16 06:38] LABS: BUN Creatinine Ratio 19.3 (10-20); Calcium 9.3 mg/dl (8.5-10.1); Creatinine Clr Calc Pharmacy 50.6 ml/min; Est GFR (African American) 89.5; Est GFR (Non-African American) 77.2; Potassium 3.9 mmol/L (3.5-5.1)
[2019-03-16 07:00] LABS: Estimated Average Glucose 123 mg/dl; Hemoglobin A1C 5.9 % (4.5-5.6)
--- NOTE | 2019-03-16 07:08 | Magnetic Resonance Report ---
MRI OF THE BRAIN WITHOUT AND WITH IV CONTRAST CLINICAL HISTORY: Weakness. Evaluate for stroke. COMPARISON STUDY: Head CT February 18, [address] and CTA of the head March 15, 2019. TECHNIQUE: Utilizing a 1.5 Sigrid magnet and dedicated coil, multiplanar, multiecho imaging of the br ain was performed pre and postcontrast administration. IV administration of 5.7 mL of Gadavist contr ast was uneventful. FINDINGS: There are no foci of restricted diffusion to suggest acute infarct. No acute intracranial h emorrhage, midline shift or mass effect is present. No intracranial mass or pathologic enhancement is present. There is moderate cerebral atrophy. This accounts for ventricular dilatation. The basilar c isterns are patent. There are no extra-axial collections. White matter T2 hyperintense foci suggest m ild small vessel disease. Calvarial signal is normal. Orbits are unremarkable. Suspected mucous reten tion cyst within the right maxillary sinus is noted. There is no evidence for acute sinusitis. Mastoi d air cells are clear. IMPRESSION: 1. No acute intracranial findings. 2. No intracranial mass or pathologic enhancement. 3. Moderate atrophy and mild small vessel disease. Electronically signed by: César Crockett M.D. 03/16/2019 7:06 AM
--- NOTE | 2019-03-16 08:11 | Neurology Consultation ---
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 # AMS/leaning to the left: no sign of stroke on MRI, question whether his overall presentation represents cortical basal degeneration (CBD) given his MRI and symptoms. He appears to be at his neurological baseline comparing his current exam to that in his recent outpatient note. - please complete infectious workup with UA (he does have a foul odor of urine on examination) - ensure that he does not have fecal impaction/heavy stool retention (may need enema) - check TSH, ammonia, thiamine - start thiamine supplementation given thinned corpus callosum (likely nutritional deficiency given poor PO intake) - amantadine was supposed to be discontinued on 03/07/[address] Lezama's note. If he was not already weaned off of it at home, please decrease to amantadine 100mg daily x5 days, then discontinue - recently started hyoscyamine for drooling which can have HEEL REDUCER side effects, could consider holding if still altered per family and discussing an alternative with Dr Lezama as an outpatient - continue home simvastatin 20mg qhs - newly prediabetic on testing this admission; PCP to f/u - given no stroke on MRI and unlikely to represent a TIA, no need for TTE at this time - f/u with Dr Lezama earlier than scheduled August 2019 appointment (can be via phone or portal message) # Dementia: - continue home memantine 100mg bid # RLS: - continue home ropinirole 0.5mg bid Thank you for this interesting consult. Please text or call with questions. 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 He is non-ambulatory at baseline (uses a wheelchair) and has long-standing BLE weakness. Dane reported difficulty speaking, however, family said he was at his baseline. In the ED, labs notable for WBC 4.27, Hb 12.9, Plts 204, INR 1.2, Na 140, AG 6, BUN 20, Cr 1.11, glucose 121, Mg 1.9, Ca WNL, negative troponin, elevated AlkPhos 201, A1c 5.9, LDL 33, vitamin D 25OH 54.2 (WNL). CTH showed moderate- severe generalized atrophy w/ ex vacuo dilation and mild SVID (per my read). CXR showed emphysema but no pneumonia. CTA H&N showed dominant left vertebral artery but no LVO, high grade stenosis or aneurysm. MRI brain shows no acute infarct, mild SVID, moderate-severe generalized atrophy, thinning of the corpus callosum, and ?hummingbird sign (per my read). Today, he reports that he has a cough and ongoing drooling, but denied any chest pain, numbness, tingling, weakness, headaches. He was unable to tell me why he was brought to the hospital and no family was available for further questions. Allergies Allergy/AdvReac Type Severity Reaction Status Date / Time erythromycin base Allergy Unknown DOESN'T Verified 03/15/19 22:51 REMEMBER WHAT REACTION oxycodone Allergy Unknown TOLERATES Verified 03/15/19 22:51 VICODIN tetracycline Allergy Unknown RASH Verified 03/15/19 22:51 Home Medications Home Medications Medication Instructions Recorded Confirmed Type albuterol sulfate [Ventolin HFA] 2 puff INHALATION Q4 PRN 03/15/19 03/15/19 History amantadine HCl 100 mg PO BID 03/15/19 03/15/19 History calcium carbonate-vitamin D3 1 tab PO BID 03/15/19 03/15/19 History [Calcium 500 + D] carbidopa-levodopa 2 tab PO TID 03/15/19 03/15/19 History cholecalciferol (vitamin D3) 2,000 unit PO DAILY 03/15/19 03/15/19 History [Vitamin D3] docusate sodium 100 mg PO BID 03/15/19 03/15/19 History hyoscyamine sulfate 0.125 mg PO Q6 PRN 03/15/19 03/15/19 History memantine [Namenda] 10 mg PO BID 03/15/19 03/15/19 History montelukast [Singulair] 10 mg PO DAILY 03/15/19 03/15/19 History nitrofurantoin monohyd/m-cryst 100 mg PO DAILY 03/15/19 03/15/19 History [Macrobid] phenazopyridine 100 mg PO TID PRN 03/15/19 03/15/19 History polyethylene glycol 3350 17 g PO DAILY 03/15/19 03/15/19 History [Natura-LAX] potassium chloride [K-Tab] 20 meq PO DAILY 03/15/19 03/15/19 History quetiapine [Seroquel] 75 mg PO HS 03/15/19 03/15/19 History ropinirole 0.5 mg PO BID 03/15/19 03/15/19 History senna 17.2 mg PO HS PRN 03/15/19 03/15/19 History sennosides-docusate sodium 2 tab-cap PO DAILY PRN 03/15/19 03/15/19 History [Senna-S] simvastatin [Zocor] 20 mg PO HS 03/15/19 03/15/19 History Patient History Medical History Allergic rhinitis Constipation Dementia with Lewy bodies Dyslipidemia Essential hypertension History of malignant neoplasm of prostate Parkinsons disease Restless legs syndrome Surgical History Hx of lithotripsy S/P ureteral stent placement Family History Mother Breast cancer Social History Preferred Language: Haitian Communication Ability: Impaired Visual Impairment: Limited Hearing Ability: Hard of Hearing Groundskeeper Supervisor Required: No Beliefs That Will Affect Care: None marital status: / Current Living Situation: Alf Current Living Situation Comment: Other Information That Helps Us Care for You: No Feels Safe at Home: Yes Safety Concerns: Feels Safe At This Time Smoking Status: Unknown if ever smoked Hx Alcohol Use: No Hx Substance Use: No Childhood Exposure to Second-Hand Smoke: No caffeine: Yes (Coffee one per day. ) during the past year weight has: decreased > 10 lbs Dental Care, Regularly: No Physical Activity Frequency: Does not Exercise Seatbelt Use: always Sunscreen Use: Yes Review of Systems Review of Systems: Unobtainable due to cognitive status Physical Exam Physical Exam: General Exam: GEN: NAD, sitting in bed. HEENT: No conjunctival injection, + rhinorrhea, + drooling. CV: RRR, no peripheral edema PULM: Nonlabored respirations on room air. Neuro Exam: MS: Awake and Alert. Oriented to person but not location or month/year. Speech fluent and appropriate. Positive for hypophonia mild dysarthria. Language intact including naming, comprehension, repetition. Poor historian, unable to do delayed recall or give basic information like location or date. Attention intact. No neglect. CN: Visual lee full. No extinction to double simultaneous stimuli. Unable to visualize optic discs due to patient inability to keep eyes open on exam. PERRLA OU. EOMI without nystagmus. Facial sensation intact to LT. Facial muscles full and symmetric. Hearing intact to conversation. Uvula midline with symmetric palatal elevation. Shoulder shrug normal. Tongue midline. MOTOR: Decreased muscle bulk, + gegenhalten. No pronator drift. BUE strength 5/5 at deltoids, biceps, triceps, and hand grasp bilaterally. BLE strength 5/5 at iliopsoas, tibialis anterior, and gastrocnemius bilaterally. Positive bradykinesia and rigidity, no tremor at rest or with intention noted. REFLEXES: 2+ at biceps, triceps, brachioradialis, trace patella and absent Achilles bilaterally. Flexor plantar responses bilaterally. SENSORY: Intact to LT without extinction to double simultaneous stimuli. Diminished vibration and temperature up to the knees bilaterally, normal in the upper extremities. COORDINATION: No dysmetria or ataxia on [id number]. GAIT: Deferred, wheelchair-bound at baseline Results & Data Vital Signs (Past 12 Hours) Vital Signs Temp Pulse Pulse Resp BP BP Pulse Ox 03/16/19 04:43 36.4 C L 94 H 16 139/88 94 03/16/19 01:25 36.9 C 80 16 140/70 98 03/16/19 00:46 03/16/19 00:18 66 21 145/78 H 100 03/16/19 00:00 70 26 H 152/80 H 100 03/15/19 23:30 65 25 H 140/79 100 03/15/19 23:00 65 18 137/77 100 03/15/19 22:51 67 27 H 133/74 100 03/15/19 22:45 66 22 138/75 99 03/15/19 22:30 68 24 138/76 99 03/15/19 22:15 70 20 125/70 96 03/15/19 22:09 36.5 C 70 18 125/70 96 Pulse Ox 03/16/19 04:43 03/16/19 01:25 03/16/19 00:46 98 03/16/19 00:18 03/16/19 00:00 03/15/19 23:30 03/15/19 23:00 03/15/19 22:51 03/15/19 22:45 03/15/19 22:30 03/15/19 22:15 03/15/19 22:09 PG Care Time/CCT Total # of Minutes Spent Total Time Spent with Patient: Total time spent is greater than 50% in coordination of care (as documented) at patient's floor/unit and/or counseling patient:
[2019-03-16] MEDS: CARBIDOPA/LEVODOPA 25/100MG TAB PO SCH ×2 (08:30→13:57)
[2019-03-16] MEDS ORDERED: CALCIUM 600MG + VIT D 400 IU TAB PO SCH (09:00)
[2019-03-16] MEDS ORDERED: ROPINIROLE HCL 0.25 MG TABLET PO SCH (09:00)
[2019-03-16] MEDS ORDERED: NITROFURANTOIN MONOHYDRATE 100 MG CAP PO SCH (09:00)
[2019-03-16] MEDS ORDERED: AMANTADINE HCL 100 MG CAPSULE PO SCH (09:00)
[2019-03-16] MEDS ORDERED: POLYETHYLENE (MIRALAX) 17 GM PACK PO SCH (09:00)
[2019-03-16] MEDS ORDERED: MONTELUKAST SODIUM 10 MG TABLET PO SCH (09:00)
[2019-03-16] MEDS ORDERED: ASPIRIN 81 MG ECTAB PO SCH (09:00)
[2019-03-16] MEDS ORDERED: CHOLECALCIFEROL 1,000 UNITS TAB PO SCH (09:00)
[2019-03-16] MEDS ORDERED: POTASSIUM CHLORIDE 20 MEQ TABCR PO SCH (09:00)
[2019-03-16] MEDS ORDERED: THIAMINE HCL 100 MG TAB PO SCH (09:15)
[2019-03-16 12:05] LABS: Appearance Urine Turbid (Clear); Bacteria Urine Automated 1+ (Negative); Bilirubin Urine Negative (Negative); Blood Urine 3+ (Negative); Color Urine Orange; Epithelial Cell Urine Auto >30 /lpf (0-5); Glucose Urine UA Negative (Negative); Ketones Urine Negative (Negative); Leukocyte Esterase Urine 3+ (Negative); Nitrite Urine Negative (Negative); Protein Urine 1+ (Negative); Urobilinogen Urine Negative (Negative); WBC Urine Automated >30 /hpf (0-5)
[2019-03-16 12:20] LABS: RBC Urine Automated >30 /hpf (0-4)
[2019-03-16 12:24] LABS: Calcium Oxalate Crystals Urine Present (None Prsent)
--- NOTE | 2019-03-16 13:04 | Discharge Summary ---
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 Patient reports difficulty speaking however daughter and niece believe his speech is at baseline, slowed and difficult to understand. Per neurology note his speech is also noted to be slow consistent with his Parkinson's. Daughter reports visiting father around 3 PM and he appeared off to herleaning more towards one side, left side color was off he looked more pale. Niece visited an hour later and thought he looked good. Then later [facility] called that he was leaning more towards the left and acting differently as they were preparing him for bedtime so he was brought to the ED. According to niece he ate his lunch and supper today and did well. Patient reports weakness in legs for a long time. No new weakness in limbs. Patient denies any fever, chills, headache, lightheadedness, neck pain, back pain, abdominal pain, chest pain, shortness of breath, nausea, vomiting, diarrhea, constipation, hematochezia, dysuria, hematuria. Per Dr. Lezama's note from 03/01/2019: Patient deconditioning, declining overall function per personal group home. No longer able to walk, requires transport in and out of wheelchair, poor balance and unable to work with PT. Excess salivation for which she was started on hyosyamine. He is reported to be choking as well and requiring thickened liquids and moist and food. Principal Diagnosis Weakness, UTI Discharge Exam Constitutional + thin; no acute distress Eyes + anicteric sclerae and PERRL; no eyelid abnormality and no nystagmus ENMT Ears: no external ear abnormality edentulous, some excessive saliva Neck trachea midline, no thyromegaly Respiratory normal respiratory effort, lungs clear to auscultation Cardiovascular RRR, no murmur, no edema Chest (Breasts) Chest: normal inspection of chest Gastrointestinal (Abdomen) normal bowel sounds, soft, nontender, no hepatosplenomegaly Musculoskeletal Extremities: extremities normal to inspection; no cyanosis and no clubbing Skin no rashes, warm and dry Neurologic moves all extremities and awake; no focal motor deficits Psychiatric Orientation: alert, oriented to person and cooperative; + not oriented to place and + not oriented to time Eye Contact: good eye contact Lymphatic no lymphedema Discharge Data Allergies Allergy/AdvReac Type Severity Reaction Status Date / Time erythromycin base Allergy Unknown DOESN'T Verified 03/15/19 22:51 REMEMBER WHAT REACTION oxycodone Allergy Unknown TOLERATES Verified 03/15/19 22:51 VICODIN tetracycline Allergy Unknown RASH Verified 03/15/19 22:51 Consultations 03/15/19 22:57 ED Decision to Admit Stat 03/16/19 00:46 Consult Case Management - Discharge Planning Routine Consult Neurology Routine Procedures Performed Echocardiogram-low normal LVEF, calcified mitral apparatus Ordered Studies 03/15/19 21:39 CT head/brain wo con Stat 03/15/19 21:40 CT angio head w con Stat CT angio neck with con Stat 03/16/19 00:46 MR brain wo/w con Routine CXR Hospital Course (1) Stroke-like symptoms: This patient is an 83-year-old male with history of 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 Concern for stroke versus baseline deconditioning Strokelike symptoms: Leaning more to the left and possible speech changes--> MRI brain without CVA evident Vitals within normal limits Normal neurologic exam compared to baseline as per reports from Neurology CT head: Chronic small vessel ischemic change, no acute intracranial abnormality CTA head: No aneurysm focal vessel occlusion or stenosis of intracranial arteries CTA neck: No dissection focal vessel occlusion significant stenosis of cervical artery ECHO without Lipid profile and hemoglobin A1c ordered Echo ordered without bubble study however no thrombus identified Started on aspirin 81 mg daily, but then discontinued after TIA/CVA ruled out Neurology consulted-appreciate consultation. Does not think this represented TIA or CVA. Recommendations included starting thiamine supplement for thinned corpus callosum on MRI, checking TSH and Ammonia levels which were normal, and checking/treating for UTI--> UA appeared somewhat abnormal but was contaminated. Given he had urinary retention here and possible UTI as explanation for his presenting symptoms, decided to treat with po Keflex x 7 day course. Will need follow up on Vitamin B1 level after discharge Urinary retention/Gross hematuria--> he was straight cathed on admission--> perhaps for retention, unclear reason. Since then, he had some small clots with urination. Bladder scan showed 560mL and that was post-void residual prior to discharge. Decision made to place Ellison catheter prior to discharge and he drained out 800mL of urine with a few small clots as per RN. Discussed with the DIGITAL DESIGN ENGINEER at his personal group home who feels comfortable flushing/irrigating for clots as needed and will arrange for him to see his Urologist within the week for a voiding trial. Hematuria likely secondary to trauma from straight cath. Will treat with Keflex x 7 day course for UTI and f/u on Urine culture after discharge. Hyperlipidemia-lipid panel here with low cholesterol likely secondary to statin and poor nutrition Continue home simvastatin Parkinson's disease Is no longer on amantadine -continue carbidopa levodopa same dose Continue hyoscyamine for excessive salivation-usually takes once daily Dementia Continue home memantine RLS Continue ropinirole Emphysema Continue home albuterol inhaler, montelukast Chronic constipation-had a BM the day of discharge Continue home docusa, MiraLAX, senna as needed History of recurrent UTIs Continue Macrobid prophylaxis, phenazopyridine Dispo-stable for dc to personal group home (2) Weakness: (3) Parkinsonism: (4) Constipation: (5) Dementia with Lewy bodies: (6) Dyslipidemia: (7) Essential hypertension: (8) History of malignant neoplasm of prostate: (9) Restless legs syndrome: (10) Dysphagia: (11) Sialorrhea: (12) Urinary retention: (13) UTI (urinary tract infection): Total Time Total Time Spent Total Time Spent (In Minutes): 45 minutes Total Time Includes: Examination of the Patient, Discharge Planning and Medicat ion Reconciliation Discharge Plan Discharge Items Patient Disposition: [facility] Reason For Visit: CONCERN FOR STROKE Discharge Diagnosis: Weakness Condition on Discharge: Fair Activity: Resume your previous activity Non-emergency contact: Primary Care Provider and Neurologist Call non-emergency contact if: you have any medication questions and your symptoms worsen Follow-up/Referrals: [facility] [Other] - 03/22/19 10:00 am (Please, follow up at [facility] for a video swallow study on March 22 at 10:30 am (arrive 10:00 am). *You will need to register at the telephone operator receptionist desk in the lobby of this [facility] at 10:00 am. There is no special preparation for this study. However, you should let the tech know if you are allergic to any foods or food dyes. If you need to change this appointment, call Central Scheduling at [phone].) Elpidio Lezama MD [Physician] - (Please follow up as scheduled in a few months. ) Melina Ag DO [Primary Care Provider] - 03/21/19 5:00 pm (Please, follow up at Dr. Ag's office with her associate, Adriana Soto PA-C, on TuesdayMarch 21 at 5:00 pm. *If you need to change this appointment, call their office at [phone]. ) Diet: Regular Diet Texture: Pureed (blended smooth) Liquid Consistency: Honey thick Addtl Attending Provider Instructions: Mr. Bains was admitted for a workup for stroke due to leaning to the left and speech changes. His workup was negative for stroke. He does however have significant dysphagia secondary to his progressive neurological disorder and was seen by Speech Therapy. They recommend he continue with the pureed diet and honey thick liquids, however he should have a formal video fluoroscopic swallow study as an outpatient. His amantadine has been discontinued as per previous Neurology recommendations, and he can continue on the hyoscyamine as needed for excessive salivation. He was also started on thiamine (vitamin B1) daily as per Neurology recommendations for a suspected deficiency based on the appearance of his brain on MRI. He was found to have a UTI on urinalysis and was started on keflex x a 7 day course for an antibiotic. He was having some small blood clots in the urine and had urinary retention. A Ellison catheter was placed and he will need to have the Ellison irrigated as needed for clots. Please have him follow up with his Urologist within 1 week for removal of Ellison catheter and a trial of voiding. Consideration can be made to a Palliative Care/Hospice evaluation if his condition continues to decline in the future. Pending Studies at Discharge: Yes Studies:: Urine culture, Vitamin B1 level Stand-Alone Forms: [facility] Skilled Items Patient informed of condition?: Yes DNR: Yes Discharge Level of Care: Other Communicable Disease: No Discharge Prognosis: Stable Lines: None Urinary Catheter: Yes (Needs trial of void in 1 week with Urology) Medications and DC Order Prescriptions: New thiamine HCl (vitamin B1) [Vitamin B-1] 100 mg Tablet 100 mg PO QAM Qty: 30 RF: 0 cephalexin 500 mg Capsule 500 mg PO BID Qty: 14 RF: 0 Continued sennosides-docusate sodium [Senna-S] 8.6-50 mg Tablet 2 tab-cap PO DAILY PRN (Reason: Constipation) RF: 0 potassium chloride [K-Tab] 10 mEq tablet extended release 20 meq PO DAILY RF: 0 phenazopyridine 100 mg Tablet 100 mg PO TID PRN (Reason: URINARY SYMPTOMS) RF: 0 simvastatin [Zocor] 20 mg tablet 20 mg PO HS RF: 0 hyoscyamine sulfate 0.125 mg Tablet 0.125 mg PO Q6 PRN (Reason: SIALORRHEA) RF: 0 ropinirole 0.5 mg tablet 0.5 mg PO BID RF: 0 docusate sodium 100 mg Capsule 100 mg PO BID RF: 0 montelukast [Singulair] 10 mg tablet 10 mg PO DAILY RF: 0 polyethylene glycol 3350 [Natura-LAX] 17 gram/dose Powder 17 g PO DAILY RF: 0 albuterol sulfate [Ventolin HFA] 90 mcg/actuation Hfa Aerosol Inhaler 2 puff INHALATION Q4 PRN (Reason: Shortness Of Breath Or Wheezing) RF: 0 carbidopa-levodopa 25-100 mg tablet 2 tab PO TID RF: 0 memantine [Namenda] 10 mg tablet 10 mg PO BID RF: 0 senna 8.6 mg Capsule 17.2 mg PO HS PRN (Reason: Constipation) RF: 0 nitrofurantoin monohyd/m-cryst [Macrobid] 100 mg capsule 100 mg PO DAILY RF: 0 calcium carbonate-vitamin D3 [Calcium 500 + D] 500 mg(1,250mg) -200 unit Tablet 1 tab PO BID RF: 0 quetiapine [Seroquel] 50 mg tablet 75 mg PO HS RF: 0 cholecalciferol (vitamin D3) [Vitamin D3] 2,000 unit Tablet 2,000 unit PO DAILY RF: 0 Discontinued amantadine HCl 100 mg tablet 100 mg PO BID RF: 0 Discharge Orders: Discharge Order (Routine); Ordered 03/16/19 Ordered By: Juju Phillips Admission Data Admit Date/Time: 03/15/19 23:37 Attending Provider: Juju Phillips Admit Provider: Denny Solares Primary Care Provider: Melina Ag Other Providers: Denny Solares ; Lucy Grier Other Interventions: Discharge Summary Assessment (RN) Last Done: 03/16/19 15:02 DC Date/Time DO NOT enter until pt leaves facility: 03/16/19 15:57
[2019-03-16] MEDS ORDERED: cephALEXin 500 MG CAP PO SCH (13:15)
[2019-03-16] MEDS ORDERED: STROKE PATIENT DISCHARGE STA (13:42)
[2019-03-16] MEDS ORDERED: INFLUENZA Vaccine HIGH DOSE 65+yrs 0.5 mL Syr IM ONE (14:45)
[2019-03-16] MEDS ORDERED: PNEUMOCOCCAL Polysaccharide Vaccine 25mcg/0.5mL vial/Syr IM ONE (14:45)
--- NOTE | 2019-03-16 20:40 | Billing Data ---
Coding Level of Care Code 55530 OBS Care - Level 3
[2019-03-16] MEDS ORDERED: QUETIAPINE FUMARATE 25 MG TABLET PO SCH (21:00)
[2019-03-16] MEDS ORDERED: SIMVASTATIN 20 MG TAB PO SCH (21:00)
[2019-03-17] MEDS ORDERED: AMANTADINE HCL 100 MG CAPSULE PO SCH (09:00)
== END 2019-03-16 15:57 | disposition home or self-care (01) ==
LOC: ED 21:47 → INTOOBSV 23:37 → SUATTDRO 23:37 → 2N 23:37